=== PATIENT | male | born 1955 | race Hispanic/Latino ===

== ENCOUNTER → 2018-09-14 | Day surgery (SDC) | payer OTHER ==
[2018-09-10 14:18] LABS: BASOPHILS # (AUTO) 0.1 (0.0-0.1); BASOPHILS % 0.9 % (0.0-1.0); EOSINOPHILS # (AUTO) 0.3 (0.0-0.4); EOSINOPHILS % 4.5 % (0.0-6.0); HEMATOCRIT 42.5 % (38.2-49.6); LYMPHOCYTES # (AUTO) 2.4 (1.0-3.2); LYMPHOCYTES % 35.3 % (18.0-39.1); MEAN CORPUSCULAR HGB CONC 35.3 g/dL (31-35); MEAN CORPUSCULAR VOLUME 90.6 fL (81-99); MONOCYTES # (AUTO) 0.6 (0.2-0.8); MONOCYTES % 9.1 % (4.4-11.3); NEUTROPHILS # (AUTO) 3.4 (2.1-6.9); NEUTROPHILS % 49.5 % (38.7-80.0); PLATELET COUNT 240 x10e3/uL (140-360); RED BLOOD COUNT 4.69 x10e6/uL (4.3-5.7); RED CELL DISTRIBUTION WIDTH 13.5 % (11.7-14.4)
[2018-09-10 14:41] LABS: ANION GAP 9.6 mmol/L (8-16); BLOOD UREA NITROGEN 14 mg/dL (7-26); BUN/CREATININE RATIO 14 (6-25); CALCIUM 9.5 mg/dL (8.4-10.2); CARBON DIOXIDE 26 mmol/L (22-29); CHLORIDE 102 mmol/L (98-107); CREATININE, SERUM 1.03 mg/dL (0.72-1.25); EST GLOMERULAR FILTRATION RATE > 60 ML/MIN (60-); GLUCOSE 139 mg/dL (74-118); POTASSIUM 3.6 mmol/L (3.5-5.1); SODIUM 134 mmol/L (136-145)
[~2018-09-14] MED LIST: ADVIL200 MG PO; BUPIVACAINE HCL 0.5% INJ 30 ML VIAL INJ ONE; CEFAZOLIN SOD 1 GM/NS 50ML 100 ML IV ONE; DEXAMETHASONE SOD PHOS INJ 4 MG/ML VIAL ONE; FENTANYL CITRATE/PF 100MCG/2 ML INJ ONE; IRBESARTAN150 MG PO; KETOROLAC TROMETHAMINE 30 MG/ML VIAL ONE; LIDOCAINE HCL 2% LOCAL INJ 5 ML SDV VIAL INJ ONE; MIDAZOLAM HCL 2 MG/2 ML VIAL ONE; MULTI-VITAMIN1 EACH PO; ONDANSETRON HCL INJ 2MG/ML 2ML 2 MG/ML VIAL ONE; PROPOFOL IV EMULSION 10 MG/ML 20 ML VIAL ONE; ROCURONIUM BROMIDE 10 MG/ML 5ML VIAL ONE; SEVOFLURANE INHAL SOLN 250 ML PEN BTL ONE; SUCCINYLCHOLINE 200 MG/10 ML SYR ONE; ZETIA10 MG PO
[2018-09-14 15:30] VITALS: BP 121/69
--- NOTE | 2018-09-15 02:07 | Operative Report ---
DATE OF PROCEDURE: 09/14/2018 SURGEON: Rodolfo Mcdaniels MD PREOPERATIVE DIAGNOSES: 1. Soft tissue mass, posterior neck. 2. Ganglion cyst, left posterior hand. POSTOPERATIVE DIAGNOSES: 1. Soft tissue mass, posterior neck. 2. Ganglion cyst, left posterior hand. PROCEDURES: 1. Excision of soft tissue mass from the posterior neck, 3 cm. 2. Excision of ganglion cyst from the left posterior hand. INSECTICIDE MIXER: None. ANESTHESIA: General endotracheal. INDICATIONS AND FINDINGS: The patient is a 63-year-old male, presenting with complaints of swelling in his posterior neck as well as on the back of his hand there was an epidermal cyst extending from the skin and subcutaneous tissue, posterior neck that was about 3 cm in diameter. There was also a ganglion cyst on the left posterior hand which was completely excised down its origin which was about 1 cm in diameter. TECHNIQUE: After adequate general endotracheal anesthesia, the patient in the right side down position. The posterior neck and left hand were prepped and draped in sterile fashion with ChloraPrep solution. Transverse incision was made over the mass in the posterior neck. Incision carried down into the skin until the mass identified, then completely excised from the surrounding tissues, found to extend into the subcutaneous tissue. The mass appeared to be an epidermal cyst. Hemostasis achieved with electrocautery. The wound was irrigated with saline, inspected for hemostasis which was seen to be adequate. This wound was then closed in interrupted sutures of 4-0 nylon and sterile dressing was applied. Attention was then turned to the left hand. Tourniquet was inflated to 300 mmHg. Incision made over the mass, carried down through subcutaneous tissue. The mass identified. Mass was then completely excised from the surrounding tissues down to its origin, which was seemed to be over a tendon. was a ganglion cyst. Once this was excised, there was no open area which was closed with 3-0 Vicryl where the cyst originated and the wound was then closed with interrupted sutures of 4-0 nylon. A sterile dressing was applied. The tourniquet was deflated. Total tourniquet time was about 6 minutes. The patient tolerated the entire procedure well. Estimated blood loss for the entire procedure was 20 mL. There were no complications. All counts were correct. The patient was taken to the recovery room in satisfactory condition. MD JARROD Lipscomb/SUSHIL /[id number]
== END | disposition home or self-care (01) ==
LOC: OR 14:37
PROVIDERS: ATTEND Surgery
DX: L72.0 Epidermal cyst (principal); M67.442 Ganglion, left hand; G47.33 Obstructive sleep apnea (adult) (pediatric); I10 Essential (primary) hypertension; E78.5 Hyperlipidemia, unspecified; Z88.6 Allergy status to analgesic agent; Z01.810 Encounter for preprocedural cardiovascular examination; Z01.812 Encounter for preprocedural laboratory examination; Z68.32 Body mass index [BMI] 32.0-32.9, adult
CPT/HCPCS: 11423; 26160; 36415; 80048; 85025; 88304; 93005; J0690; J1100; J1885; J2001; J2250; J2405; J2704; 88305